=== PATIENT | female | born 1965 | race Caucasian/White ===

== ENCOUNTER → 2017-03-08 | Outpatient (CLI) | payer OTHER ==
[2017-03-09 15:23] LABS: HPV Genotype 16 Not Detected (NOTDET); HPV Genotype 18 Not Detected (NOTDET)
[2017-03-14 14:58] LABS: HPV High Risk Other Not Detected (NOTDET)
== END ==
LOC: LAB 10:53
PROVIDERS: Obstetrics & Gynecology
DX: Z01.419 Encounter for gynecological examination (general) (routine) without abnormal findings (principal)
CPT/HCPCS: 87624; G0123

== ENCOUNTER 2022-10-16 18:08 | Emergency (ER) | payer OTHER ==
[~2022-10-16] VITALS: Ht 152.4 cm; Wt 70.3 kg
[2022-10-16 18:29] VITALS: BP 122/98
== END 2022-10-16 19:57 | disposition home or self-care (01) ==
LOC: ER 18:08
DX: T63.441A Toxic effect of venom of bees, accidental (unintentional), initial encounter (principal); X58.XXXA Exposure to other specified factors, initial encounter
CPT/HCPCS: 99283; A9270; J7512

== ENCOUNTER → 2024-03-19 | Outpatient (CLI) | payer OTHER ==
[2024-03-19 11:04] LABS: BASOPHILS ABSOLUTE AUTO 0.07 K/mm3 (0.00-0.23); BASOPHILS PERCENT AUTO 1 % (0-2); EOSINOPHILS ABSOLUTE AUTO 0.26 K/mm3 (0.00-0.68); EOSINOPHILS PERCENT AUTO 3 % (0-6); Hematocrit 43.4 % (33.0-51.0); Hemoglobin 14.9 g/dL (11.5-16.0); IMMATURE GRAN ABSOLUTE AUTO 0.03 K/mm3 (0.00-0.10); IMMATURE GRAN PERCENT AUTO 0 % (0-1); LYMPHOCYTES ABSOLUTE AUTO 2.96 K/mm3 (0.84-5.20); LYMPHOCYTES PERCENT AUTO 34 % (21-46); MONOCYTES ABSOLUTE AUTO 0.46 K/mm3 (0.16-1.47); MONOCYTES PERCENT AUTO 5 % (4-13); Mean Corpuscular HGB 30.2 pg (26.0-34.0); Mean Corpuscular HGB Conc 34.3 g/dL (31.5-36.5); Mean Corpuscular Volume 88 fL (80-100); Mean Platelet Volume 8.4 fL (9.1-12.4); NEUTROPHILS ABSOLUTE AUTO 5.04 K/mm3 (1.96-9.15); NEUTROPHILS PERCENT AUTO 57 % (41-73); Platelet Count 255 K/mm3 (150-400); RDW Coefficient Variation 12.6 % (11.7-14.2); RDW Standard Deviation 40.7 fL (35.1-46.3); Red Blood Cell Count 4.93 M/mm3 (3.80-5.20); White Blood Cell Count 8.82 K/mm3 (4.00-11.30)
[2024-03-19 11:20] LABS: Albumin, Blood 3.9 g/dL (3.4-5.0); Albumin/Globulin Ratio 0.9 (0.8-1.8); Bilirubin, Total 0.4 mg/dL (0.1-1.0); Bun/Creatinine Ratio 25.4 (12.0-20.0); Calcium, Blood 9.4 mg/dL (8.5-10.1); Creatinine, Blood 0.67 mg/dL (0.40-1.00); Globulin, Blood 4.3 g/dL (2.2-4.0); Potassium, Blood 4.2 mmol/L (3.5-5.5); Total Protein, Blood 8.2 g/dL (6.4-8.2)
== END | disposition home or self-care (01) ==
LOC: LAB 11:01 → LAB SHORT 11:01
PROVIDERS: Physician Assistant
DX: R07.9 Chest pain, unspecified (principal)
CPT/HCPCS: 80053; 83880; 84484; 85025

== ENCOUNTER 2024-11-05 11:41 | Day surgery (SDC) | payer OTHER ==
[2024-11-05] VITALS (20 sets, daily range): BP systolic 118–179; BP diastolic 75–113
[~2024-11-05] VITALS: Ht 152.4 cm; Wt 69.9 kg
[~2024-11-05 11:41] MED LIST: AMLO10 PO; JENCYCLA0.35 MG PO; LOSA50 PO
--- NOTE | 2024-11-05 12:46 | NUR ---
Ambulatory in Day Surgery. History, Chart, Medications and Allergies reviewed before start of procedure. Lungs clear T/O to Auscultation. Patient confirms NPO status and agrees with scheduled surgery. Pre-Op teaching done. Pt verbalizes understanding. Patient States Post-Procedure ride home has been arranged.
--- NOTE | 2024-11-05 13:33 | NUR ---
11/05/24 1333 Jj Sommers CONFIRMED AND REVIEWED H&P, MEDCICATIONS, ALLERGIES, MEDICAL HISTORY, RESPIRATORY HISTORY, VITAL SIGNS, 3-LEAD EKG, CONSENTS, AND PHYSICIAN ORDERS. PATIENT CONFIRMS NPO STATUS AND AGREES WITH SCHEDULED PROCEDURE. MONITOR INTACT WITH CONTINUOUS PULSE OXIMETRY, CAPNOGRAPHY, 3-LEAD EKG, INTERMITTENT BP. SUPPLEMENTAL O2 TO BE TITRATED THROUGHOUT PROCEDURE TO MAINTAIN O2 SATURATION ABOVE 90%. PATIENT DETERMINED TO BE ASA APPROPRIATE FOR PROPOFOL SEDATION PRIOR TO START OF PROCEDURE BY DR. ROOT.
--- NOTE | 2024-11-05 14:30 | NUR ---
Discharge instructions reviewed with patient. Patient verbalizes understanding. Copy given to patient to take home. Patient States Post-Procedure ride home has been arranged. Discharged via wheelchair to private car for ride home.
== END 2024-11-05 14:30 | disposition home or self-care (01) ==
LOC: ORSCMMR 11:41 → ORD 13:15 → ORSCMMR 13:15 → ORD 13:30 → ORSCMMR 14:30
PROVIDERS: Family Medicine
PROC: 0DJD8ZZ Inspection of Lower Intestinal Tract, Via Natural or Artificial Opening Endoscopic (ICD-10-PCS; principal; 2024-11-05 13:15)
DX: Z12.11 Encounter for screening for malignant neoplasm of colon (principal); K64.4 Residual hemorrhoidal skin tags; K64.0 First degree hemorrhoids; I10 Essential (primary) hypertension; K21.9 Gastro-esophageal reflux disease without esophagitis; Z79.899 Other long term (current) drug therapy
CPT/HCPCS: J2704; J7120

== ENCOUNTER 2025-01-08 14:42 | Inpatient (IN) | payer OTHER ==
[~2025-01-08] VITALS: Ht 152.4 cm; Wt 72.6 kg
[2025-01-08] VITALS (15 sets, daily range): BP systolic 95–127; BP diastolic 64–83
[2025-01-08 14:53] LABS: Source, Urine Clean Catch
[2025-01-08] MEDS ORDERED: Ketorolac Tromethamine 30mg Vial IV ONE (15:00)
[2025-01-08] MEDS ORDERED: NS 1,000 ML IV SCH ×2 (15:00→16:00)
[2025-01-08 15:02] LABS: Bilirubin, Urine Neg (Neg); Glucose Qualitative, Urine Neg (Neg); Ketones, Urine Neg (Neg); Leukocyte Esterase, Urine 1+ (Neg); Protein, Urine 1+ (Neg); Specific Gravity, Urine 1.010 (1.003-1.022); Urobilinogen, Urine NORM (Normal)
[2025-01-08 15:10] LABS: Color, Urine Pale Yellow (P-Yellow)
[2025-01-08] MEDS ORDERED: Ketorolac Tromethamine 30mg Vial IM ONE (15:15)
[2025-01-08 15:24] LABS: BASOPHILS ABSOLUTE AUTO 0.06 K/mm3 (0.00-0.23); BASOPHILS PERCENT AUTO 0 % (0-2); EOSINOPHILS ABSOLUTE AUTO 0.04 K/mm3 (0.00-0.68); EOSINOPHILS PERCENT AUTO 0 % (0-6); Hematocrit 46.2 % (33.0-51.0); Hemoglobin 15.1 g/dL (11.5-16.0); IMMATURE GRAN ABSOLUTE AUTO 0.11 K/mm3 (0.00-0.10); IMMATURE GRAN PERCENT AUTO 1 % (0-1); LYMPHOCYTES ABSOLUTE AUTO 2.86 K/mm3 (0.84-5.20); LYMPHOCYTES PERCENT AUTO 19 % (21-46); MONOCYTES ABSOLUTE AUTO 0.31 K/mm3 (0.16-1.47); MONOCYTES PERCENT AUTO 2 % (4-13); Mean Corpuscular HGB Conc 32.7 g/dL (31.5-36.5); Mean Corpuscular Volume 93 fL (80-100); NEUTROPHILS ABSOLUTE AUTO 11.64 K/mm3 (1.96-9.15); NEUTROPHILS PERCENT AUTO 78 % (41-73); NRBC ABSOLUTE 0.00 K/mm3 (0.00-0.02); NRBC Auto 0.0 /100 WBC (0.0-0.2); Platelet Count 256 K/mm3 (150-400); RDW Coefficient Variation 12.7 % (11.7-14.2); RDW Standard Deviation 43.6 fL (35.1-46.3)
[2025-01-08 15:42] LABS: Alanine Aminotransfer (ALT/SGP 65.0 U/L (12-78); Albumin, Blood 4.4 g/dL (3.4-5.0); Albumin/Globulin Ratio 0.9 (0.8-1.8); Anion Gap 13.0 mmol/L (3-11); Aspartate Aminotrans (AST/SGOT 52.0 U/L (12-37); Bilirubin, Total 0.8 mg/dL (0.1-1.0); Blood Urea Nitrogen 17.0 mg/dL (8-24); CO2, Blood 23.0 mmol/L (21-32); Calcium, Blood 9.8 mg/dL (8.5-10.1); Chloride, Blood 99.0 mmol/L (98-108); Creatinine, Blood 0.72 mg/dL (0.40-1.00); Globulin, Blood 4.9 g/dL (2.2-4.0); Glucose, Blood 155.0 mg/dL (70-99); Potassium, Blood 4.4 mmol/L (3.5-5.5); Sodium, Blood 131.0 mmol/L (136-145); Total Protein, Blood 9.3 g/dL (6.4-8.2)
[2025-01-08] MEDS ORDERED: Morphine Sulfate 4 MG/1 ML Injection IV ONE (16:05)
[2025-01-08] MEDS ORDERED: Piperacillin/Tazobactam Sod 4.5 GM in NS 100 ML IV ONE (16:05)
[2025-01-08] MEDS ORDERED: CefTRIAXone Sodium 2,000 MG in NS 100 ML IV ONE (16:55)
[2025-01-08] MEDS ORDERED: Ondansetron HCl 2 MG / ML 2ML Vial ONE (18:38)
[2025-01-08] MEDS ORDERED: Dexamethasone Sod Phos 10 MG/ML 1ML VIAL ONE (18:38)
[2025-01-08] MEDS ORDERED: FentaNYL Citrate 50 MCG/ML 2 ML Injection ONE (18:38)
[2025-01-08] MEDS ORDERED: Ondansetron HCl 2 MG / ML 2ML Vial IV PRN (18:40)
[2025-01-08] MEDS ORDERED: FentaNYL Citrate 50 MCG/ML 2 ML Injection IV PRN ×2 (18:40→18:45)
[2025-01-08] MEDS ORDERED: HYDROmorphone HCl/Pf 1MG SYR IV PRN (18:40)
[2025-01-08] MEDS ORDERED: Albuterol 2.5 MG/3 ML VIAL INH PRN (18:45)
[2025-01-08] MEDS ORDERED: Phenylephrine HCl 100 MCG/ML-NS 10MLSYR (1MG/10ML) ONE (19:25)
[2025-01-08] MEDS ORDERED: Naloxone HCl 0.4MG / ML 1ML Vial IV PRN (20:00)
[2025-01-08] MEDS ORDERED: FLU VACC TS2025-26(6MOS UP)/PF 45 MCG/0.5 ML SYRINGE IM SCH (20:05)
[2025-01-08] MEDS ORDERED: HYDROcodone 5-APAP 325 TAB PO PRN (20:05)
--- NOTE | 2025-01-08 20:31 | NUR ---
REPORT FROM SUPERVISOR GROWERRUTHIE TEJADA AT 2027. WILL GIVE REPORT TO PRIMARY RN UPON HIS RETURN.
[2025-01-08] MEDS ORDERED: Ketorolac Tromethamine 15mg Vial IV PRN (21:00)
[2025-01-08] MEDS ORDERED: Lactobacil 2-S.Thermo-Bifido 1 1 Cap PO SCH (21:00)
--- NOTE | 2025-01-08 22:02 | NUR ---
TRANSFER NOTE: PT TRANSFERED FROM PACU, LIMITED REPORT GIVEN. PT AOX4, DENIES ANY PAIN, ONLY CLAIMS TO BE COLD. VSS VERY PLEASANT, COOPERATIVE IN CARE. AT BEDSIDE. ORIENTED TO ROOM AND CALL LIGHT. CALLS APPROPRAITELY ABLE TO MAKE NEEDS KNOWN. PT IN BED RESSTING, BED IN LOWEST POSITION, CALL LIGHT IN REACH. CONTINUING CARE.
[2025-01-09 04:37] VITALS: BP 130/82
[2025-01-09 05:42] LABS: BASOPHILS ABSOLUTE AUTO 0.03 K/mm3 (0.00-0.23); BASOPHILS PERCENT AUTO 0 % (0-2); EOSINOPHILS ABSOLUTE AUTO 0.07 K/mm3 (0.00-0.68); EOSINOPHILS PERCENT AUTO 0 % (0-6); Hematocrit 36.6 % (33.0-51.0); Hemoglobin 12.3 g/dL (11.5-16.0); IMMATURE GRAN ABSOLUTE AUTO 0.12 K/mm3 (0.00-0.10); IMMATURE GRAN PERCENT AUTO 1 % (0-1); LYMPHOCYTES ABSOLUTE AUTO 0.85 K/mm3 (0.84-5.20); LYMPHOCYTES PERCENT AUTO 4 % (21-46); MONOCYTES ABSOLUTE AUTO 0.25 K/mm3 (0.16-1.47); MONOCYTES PERCENT AUTO 1 % (4-13); Mean Corpuscular HGB Conc 33.6 g/dL (31.5-36.5); Mean Corpuscular Volume 90 fL (80-100); NEUTROPHILS ABSOLUTE AUTO 20.06 K/mm3 (1.96-9.15); NEUTROPHILS PERCENT AUTO 94 % (41-73); NRBC ABSOLUTE 0.00 K/mm3 (0.00-0.02); NRBC Auto 0.0 /100 WBC (0.0-0.2); Platelet Count 219 K/mm3 (150-400); RDW Coefficient Variation 12.8 % (11.7-14.2); RDW Standard Deviation 42.1 fL (35.1-46.3)
--- NOTE | 2025-01-09 05:55 | NUR ---
SHIFT SUMMARY: PT AOX4, IND IN THE ROOM. TOLEARTING MEDICATIONS WELL. DENIES ANY PAIN OR DISCOMFORT OUTSIDE OF A HEADACHE. TOLERATING PO DIET WELL. PT VERY PLEASANT. CALLS APPROPRAITELY AND COOPERATIVE IN CARE. VSS. HAS HAD MULTIPLE VOIDS THIS EVENING PINK TINGE IN COLOR AND SOME WHAT APPEARS TO BE TISSUE/MUCOUS. PT IN BED SLEEPING BED IN LOWEST POSITION, CALL LIGHT IN REACH. CONTINUING CARE.
[2025-01-09 06:21] LABS: Anion Gap 8.0 mmol/L (3-11); Blood Urea Nitrogen 13.0 mg/dL (8-24); CO2, Blood 24.0 mmol/L (21-32); Calcium, Blood 8.4 mg/dL (8.5-10.1); Chloride, Blood 108.0 mmol/L (98-108); Creatinine, Blood 0.48 mg/dL (0.40-1.00); Glucose, Blood 198.0 mg/dL (70-99); Potassium, Blood 4.1 mmol/L (3.5-5.5); Sodium, Blood 136.0 mmol/L (136-145)
[2025-01-09 08:07] VITALS: BP 132/80
--- NOTE | 2025-01-09 10:05 | NUR ---
DR KENNEDY AT THE BEDSIDE, NOTIFIED OF POSSITIVE BLOOD CULTURES- PT HAD POSSITIVE BLOOD CULTURES TODAY. NOTIFIED, CONSULT REQUEST FOR HOSPITLIST AT THIS TIME, PT IS [facility] PT SO DR BOLAÑOS WAS CONTACTED BY FELLER MACHINE OPERATOR. DR BOLAÑOS WOULD LIKE TO SPEAK TO DR KENNEDY DIRECTLY. CALLED DR KENNEDY AND PROVIDED DR RODNEY NUMBER AT [id number].
[2025-01-09] MEDS ORDERED: Piperacillin/Tazobactam Sod 4.5 GM in NS 100 ML IV SCH (12:00)
[2025-01-09 16:58] VITALS: BP 120/77
--- NOTE | 2025-01-09 17:52 | NUR ---
SHIFT SUMMARY- PT ALERT, ORIENTED AND INDEPENDENT IN THE ROOM. PT WAS UP AND AMBULATED IN THE HALLS EARLIER TODAY SHE WALKED THE WHOLE UNIT W/O DIFFICULTY. SHE CURRENTLY HAS CONT IVF RUNNING, CALLED DR BOLAÑOS AND RECIEVED ORDER TO DC THE FLUIDS NOW. IVF DC'D AND IV IS SL UNTIL ABX ARE READY TO HANG IN A FEW MINUTES, THEN SL AFTER.
[2025-01-09] MEDS ORDERED: CefTRIAXone Sodium 1,000 MG in NS 100 ML IV SCH (18:00)
[2025-01-09] MEDS ORDERED: NS 250 ML IV PRN (18:15)
[2025-01-09 19:52] VITALS: BP 127/65
--- NOTE | 2025-01-10 04:19 | NUR ---
SHIFT SUMMARY NOC PT A/O X 4. PLEASANT AND COOPERATIVE WITH CARE. VSS. PT HAD 7 BEAT RUN OF SVT PRIOR TO SHIFT CHANGE. MG 1.9 AND ADDITIONAL 1L LR @ 100 ML/HR INFUSED. PT ON TELE SINUS/BBB IN 70'S. PT ON ENTERIC CONTACT ISOLATION FOR C DIFF, STILL HAVING LOOSE BM. PO VANCO PER EMAR. HS CBG 145 WITH 10 UNITS LONG ACTING LANTUS GIVEN PER EMAR. PT CURRENTLY RESTING WITH BED IN LOWEST POSITION, AND CALL LIGHT WITHIN REACH.
[2025-01-10 04:21] VITALS: BP 130/86
--- NOTE | 2025-01-10 04:25 | NUR ---
SHIFT SUMMARY NOC PT A/O X 4. PLEASANT AND COOPERATIVE WITH CARE. VSS. NO ACUTE CHANGES TO REPORT. PT STILL HAS C/O OF DYSURIA AND BURNING WITH URINATION, BUT NO OTHER C/O OF PAIN. NO CALCULI COLLECTED FROM HAT SO FAR. PT RECEIVED IV ABX PER EMAR. PT CURRENTLY RESTING WITH BED IN LOWEST POSITION, AND CALL LIGHT WITHIN REACH.
[2025-01-10 05:25] LABS: Glucose, Blood 135 mg/dL (70-99)
[2025-01-10 06:56] LABS: BASOPHILS ABSOLUTE AUTO 0.03 K/mm3 (0.00-0.23); BASOPHILS PERCENT AUTO 0 % (0-2); EOSINOPHILS ABSOLUTE AUTO 0.03 K/mm3 (0.00-0.68); EOSINOPHILS PERCENT AUTO 0 % (0-6); Hematocrit 34.4 % (33.0-51.0); Hemoglobin 11.4 g/dL (11.5-16.0); IMMATURE GRAN ABSOLUTE AUTO 0.09 K/mm3 (0.00-0.10); IMMATURE GRAN PERCENT AUTO 1 % (0-1); LYMPHOCYTES ABSOLUTE AUTO 2.04 K/mm3 (0.84-5.20); LYMPHOCYTES PERCENT AUTO 13 % (21-46); MONOCYTES ABSOLUTE AUTO 0.88 K/mm3 (0.16-1.47); MONOCYTES PERCENT AUTO 6 % (4-13); Mean Corpuscular HGB Conc 33.1 g/dL (31.5-36.5); Mean Corpuscular Volume 91 fL (80-100); NEUTROPHILS ABSOLUTE AUTO 13.05 K/mm3 (1.96-9.15); NEUTROPHILS PERCENT AUTO 81 % (41-73); NRBC ABSOLUTE 0.00 K/mm3 (0.00-0.02); NRBC Auto 0.0 /100 WBC (0.0-0.2); Platelet Count 243 K/mm3 (150-400); RDW Coefficient Variation 12.9 % (11.7-14.2); RDW Standard Deviation 42.5 fL (35.1-46.3)
[2025-01-10 07:09] LABS: Anion Gap 9.0 mmol/L (3-11); Blood Urea Nitrogen 16.0 mg/dL (8-24); CO2, Blood 25.0 mmol/L (21-32); Calcium, Blood 8.5 mg/dL (8.5-10.1); Chloride, Blood 110.0 mmol/L (98-108); Creatinine, Blood 0.6 mg/dL (0.40-1.00); Glucose, Blood 139.0 mg/dL (70-99); Potassium, Blood 4.2 mmol/L (3.5-5.5); Sodium, Blood 140.0 mmol/L (136-145)
[2025-01-10 08:08] VITALS: BP 147/92
[2025-01-10 16:45] VITALS: BP 137/84
--- NOTE | 2025-01-10 17:50 | NUR ---
SHIFT SUMMARY PT IS A/OX4. INDEPENDENT IN THE ROOM. PT REPORTING LEFT ABDOMINAL PAIN THAT RADIATES TO THE BACK THIS AFTERNOON. PT MEDICATED WITH OXYCODONE PER APR WITH SIGNIFICANT IMPROVEMENT TO THE PAIN. CONTINUING IV ANTIBIOTICS PER APR.
[2025-01-10] MEDS ORDERED: Polyethylene Glycol 3350 17 gm PO SCH (20:00)
[2025-01-11 04:58] VITALS: BP 134/85
[2025-01-11 05:08] LABS: BASOPHILS ABSOLUTE AUTO 0.08 K/mm3 (0.00-0.23); BASOPHILS PERCENT AUTO 1 % (0-2); EOSINOPHILS ABSOLUTE AUTO 0.28 K/mm3 (0.00-0.68); EOSINOPHILS PERCENT AUTO 3 % (0-6); Hematocrit 40.3 % (33.0-51.0); Hemoglobin 13.6 g/dL (11.5-16.0); Mean Corpuscular HGB Conc 33.7 g/dL (31.5-36.5); Mean Corpuscular Volume 90 fL (80-100); NRBC ABSOLUTE 0.00 K/mm3 (0.00-0.02); NRBC Auto 0.0 /100 WBC (0.0-0.2); Platelet Count 270 K/mm3 (150-400); RDW Coefficient Variation 12.7 % (11.7-14.2); RDW Standard Deviation 42.0 fL (35.1-46.3)
[2025-01-11 05:13] LABS: IMMATURE GRAN ABSOLUTE AUTO 0.11 K/mm3 (0.00-0.10); IMMATURE GRAN PERCENT AUTO 1 % (0-1); LYMPHOCYTES ABSOLUTE AUTO 2.66 K/mm3 (0.84-5.20); LYMPHOCYTES PERCENT AUTO 27 % (21-46); MONOCYTES ABSOLUTE AUTO 0.88 K/mm3 (0.16-1.47); MONOCYTES PERCENT AUTO 9 % (4-13); NEUTROPHILS ABSOLUTE AUTO 5.95 K/mm3 (1.96-9.15); NEUTROPHILS PERCENT AUTO 60 % (41-73)
--- NOTE | 2025-01-11 05:18 | NUR ---
SHIFT SUMMARY NOC PT A/O X 4. PLEASANT AND COOPERATIVE WITH CARE. VSS. NO ACUTE CHANGES TO REPORT. IV ABX PER EMAR, PAIN BEING MANAGED WITH HEAT THERAPY. BLOOD CULTURES STILL PENDING TO DETERMINE IV ABX SENSITIVITY. PT CURRENTLY RESTING WITH BED IN LOWEST POSITION, AND CALL LIGHT WITHIN REACH.
[2025-01-11 05:32] LABS: Glucose, Blood 112 mg/dL (70-99)
[2025-01-11] MEDS ORDERED: OXYB5 PO (08:10)
[2025-01-11] MEDS ORDERED: Acetaminophen650 M1 PO (08:10)
[2025-01-11] MEDS ORDERED: AMOCLA500 PO (08:10)
[2025-01-11] MEDS ORDERED: VISBIOME 112.51 EACH PO (08:11)
[2025-01-11 08:14] VITALS: BP 136/97
--- NOTE | 2025-01-11 09:30 | NUR ---
PT DISCHARGED TO HOME. ALL VALUABLES RETURNED AND SENT HOME WITH THE PT. DISCHARGE INSTRUCTIONS PROVIDED AND EDUCATED ON AT TIME OF DISCHARGE. IV REMOVED. MEDICATIONS FAXED TO [facility].
== END 2025-01-11 09:35 | disposition home or self-care (01) | DRG 854 ==
LOC: ER 14:42 → SURS 18:10 → MEDS 18:10 → ER 18:10 → MEDS 20:35 → SURS 20:35 → MEDS 20:35
PROVIDERS: Emergency Medicine; Internal Medicine; ADMIT Urology
PROC: 0T778DZ Dilation of Left Ureter with Intraluminal Device, Via Natural or Artificial Opening Endoscopic (ICD-10-PCS; principal; 2025-01-08 21:00)
PROC: 3E03329 Introduction of Other Anti-infective into Peripheral Vein, Percutaneous Approach (ICD-10-PCS; 2025-01-09)
DX: A41.59 Other Gram-negative sepsis (principal); N13.6 Pyonephrosis; I10 Essential (primary) hypertension; N35.92 Unspecified urethral stricture, female; N81.10 Cystocele, unspecified
CPT/HCPCS: 36415; 74177; 80048; 80053; 81001; 81025; 82947; 83605; 85025; 87040; 87077; 87086; 87186; 93005; 93010; 94762; 96374-59; 96375; 99285-25; A9270; C1758; C1769; C2617; J0696; J1100; J1885; J2270; J2371; J2405; J2543; J2704; J3010; J3480; J7030; J7050; J7120; Q9967

== ENCOUNTER → 2025-01-25 | Outpatient (CLI) | payer OTHER ==
[~2025-01-25] MED LIST changes: +AMOCLA500 PO; +Acetaminophen650 M1 PO; +OXYB5 PO; +VISBIOME 112.51 EACH PO
[2025-01-25 14:18] LABS: Source, Urine Clean Catch
[2025-01-25 17:49] LABS: Bilirubin, Urine Neg (Neg); Color, Urine Brown (P-Yellow); Glucose Qualitative, Urine Neg (Neg); Ketones, Urine Neg (Neg); Leukocyte Esterase, Urine 3+ (Neg); Protein, Urine 3+ (Neg); Specific Gravity, Urine 1.020 (1.003-1.022); Urobilinogen, Urine NORM (Normal)
[2025-01-25 18:08] LABS: Red Blood Cells, Urine TNTC /hpf (0-2)
== END ==
LOC: LAB SHORT 14:17 → LAB 14:17
PROVIDERS: Student in an Organized Health Care Education/Training Program
DX: N20.1 Calculus of ureter (principal)
CPT/HCPCS: 81001; 87077; 87086; 87186